=== PATIENT | male | born 1985 | race Caucasian/White ===

== ENCOUNTER 2024-09-19 19:47 | Emergency (ER) | payer OTHER ==
[2024-09-19 19:51] VITALS: PULSE 78; RESP 18
--- NOTE | 2024-09-19 19:57 | ED ---
Lower Extremity Injury HPI - General Source: patient, RN notes reviewed Mode of arrival: ambulatory Limitations: no limitations <Etta Damon - Last Filed: 09/19/24 19:56> <Geovanni Campbell - Last Filed: 09/19/24 20:26> - General Chief Complaint: Extremity Injury, Lower Stated Complaint: R Knee Injury Time Seen by Provider: 09/19/24 19:56 - History of Present Illness Initial Comments: Quick [id number] male sent from [place] for right knee pain. States he was playing volleyball when he noticed the pain however is unsure of a specific injury/trauma. (Etta Damon) 38-year-old male with right knee pain while playing volleyball. Patient states he jumped up and when he came down on his right knee had immediate pain. He has noted swelling since the injury which occurred just prior to arrival. Patient states he had a remote injury in this knee when he was in high school. Patient felt a pop. No other injury reported. (Geovanni Campbell) - Related Data Allergies Allergy/AdvReac Type Severity Reaction Status Date / Time ibuprofen Allergy Nausea Verified 09/19/24 19:51 Review of Systems ROS Other: All systems not noted in ROS Statement are negative. <Etta Damon - Last Filed: 09/19/24 19:56> ROS Other: All systems not noted in ROS Statement are negative. <Geovanni Campbell - Last Filed: 09/19/24 20:26> ROS Statement: Those systems with pertinent positive or pertinent negative responses have been documented in the HPI. Past Medical History Past Medical History: No Reported History History of Any Multi-Drug Resistant Organisms: None Reported Past Surgical History: No Surgical Hx Reported Past Psychological History: No Psychological Hx Reported Smoking Status: Current every day smoker Past Drug Use History: Cocaine, Heroin <Etta Damon - Last Filed: 09/19/24 19:56> General Exam Limitations: no limitations <Etta Damon - Last Filed: 09/19/24 19:56> General appearance: alert, in no apparent distress Head exam: Present: atraumatic, normocephalic Eye exam: Present: normal appearance, PERRL Neck exam: Present: normal inspection. Absent: tenderness, meningismus Respiratory exam: Present: normal lung sounds bilaterally. Absent: respiratory distress, wheezes Cardiovascular Exam: Present: regular rate, normal rhythm GI/Abdominal exam: Present: soft. Absent: distended, tenderness, guarding Extremities exam: Present: joint swelling (Right knee swelling), other (Distal pulses intact). Absent: full ROM (Decreased range of motion secondary to pain.) Neurological exam: Present: alert, oriented X3 Psychiatric exam: Present: normal affect, normal mood Skin exam: Present: warm, dry, intact <Geovanni Campbell - Last Filed: 09/19/24 20:26> - General Exam Comments Initial Comments: Visual Physical Exam Vital signs reviewed General: Well-appearing, nontoxic, no acute distress. Head: Normocephalic, atraumatic Eyes: PERRLA, EOMI ENT: Airway patent Chest: Nonlabored breathing Skin: No visual rash, normal skin tone Neuro: Alert and oriented 3 Musculoskeletal: No gross abnormalities (Etta Damon) Course Vital Signs 09/19/24 19:49 Temperature 98 F Pulse Rate 78 Respiratory 18 Rate Blood Pressure 133/80 O2 Sat by Pulse 97 Oximetry Medical Decision Making <Etta Damon - Last Filed: 09/19/24 19:56> <Geovanni Campbell - Last Filed: 09/19/24 20:26> - Medical Decision Making I completed the quick note portion of this chart signed Etta Damon PA-C (Etta Damon) Was pt. sent in by a medical professional or institution ([facility], [facility], urgent care, hospital, or fdc...) When possible be specific @ -No Did you speak to anyone other than the patient for history (EMS, parent, family, police, friend...)? What history was obtained from this source @ -No Did you review nursing and triage notes (agree or disagree)? Why? @ -I reviewed and agree with nursing and triage notes Were old charts reviewed (outside hosp., previous admission, EMS record, old EKG, old radiological studies, urgent care reports/EKG's, fdc records)? Report findings @ -No old charts were reviewed Differential Musculoskeletal Muscular strain, contusion, ligament sprain, fracture, arthritis, septic arthritis, bursitis, cellulitis, muscle spasm, nerve compression, DVT, arterial occlusion, herpes zoster, electrolyte abnormality, tumor.... This is not meant to be in all inclusive list EKG interpreted by me (3pts min.). @ -As above X-rays interpreted by me (1pt min.). @ -X-ray of the right knee is negative for displaced fracture, no dislocation. CT interpreted by me (1pt min.). @ -None done U/S interpreted by me (1pt. min.). @ -None done What testing was considered but not performed or refused? (CT, X-rays, U/S, labs)? Why? @ -None What meds were considered but not given or refused? Why? @ -None Did you discuss the management of the patient with other professionals (professionals i.e. Dr., PA, [employer], lab, RT, psych nurse, sexual assault social worker, instrument maker and repairer, teacher, financial aids officer, skilled nursing case manager)? Give summary @ -No Was smoking cessation discussed for >3mins.? @ -No Was critical care preformed (if so, how long)? @ -No Were there social determinants of health that impacted care today? How? (Homelessness, low income, unemployed, alcoholism, drug addiction, transportation, low edu. Level, literacy, decrease access to med. care, correction, rehab)? @ -No Was there de-escalation of care discussed even if they declined (Discuss DNR or withdrawal of care, Hospice)? DNR status @ -No What co-morbidities impacted this encounter? (DM, HTN, Smoking, COPD, CAD, Cancer, CVA, ARF, Chemo, Hep., AIDS, mental health diagnosis, sleep apnea, morbid obesity)? @ -None Was patient admitted / discharged? Hospital course, mention meds given and route, prescriptions, significant lab abnormalities, going to OR and other pertinent info. @ 38-year-old male with acute right knee pain while playing volleyball. Patient did have a popping sensation. X-rays are obtained which are negative for displaced fracture, no dislocation. Given the soft tissue swelling and effusion on exam as well as the popping sensation. The patient is placed in a knee immobilizer. He is instructed to follow-up with orthopedics. Undiagnosed new problem with uncertain prognosis? @ -No Drug Therapy requiring intensive monitoring for toxicity (Heparin, Nitro, Insulin, Cardizem)? @ -No Were any procedures done? @ -No Diagnosis/symptom? @Right knee effusion, right knee sprain Acute, or Chronic, or Acute on Chronic? @ -[Acute Uncomplicated (without systemic symptoms) or Complicated (systemic symptoms)? @ -Default Side effects of treatment? @ -No Exacerbation, Progression, or Severe Exacerbation? @ -No Poses a threat to life or bodily function? How? (Chest pain, [place], [place], pneumonia, PE, COPD, DKA, ARF, appy, cholecystitis, CVA, Diverticulitis, Homicidal, Suicidal, threat to staff... and all critical care pts) @ -No (Geovanni Campbell) Disposition <Etta Damon - Last Filed: 09/19/24 19:56> Is patient prescribed a controlled substance at d/c from ED?: No Time of Disposition: 20:25 <Geovanni Campbell - Last Filed: 09/19/24 20:26> Clinical Impression: Knee sprain, Knee effusion, right Disposition: HOME SELF-CARE Condition: Fair Instructions (If sedation given, give patient instructions): Knee Sprain (ED) Referrals: Nonstaff,Physician [Primary Care Provider] - 1-2 days Yao Lau MD [STAFF PHYSICIAN] - 1-2 days
--- NOTE | 2024-09-19 20:43 | XR ---
EXAMINATION TYPE: XR knee complete RT DATE OF EXAM: 09/19/2024 8:22 PM INDICATION: Patient age:Male; 38 years old; Reason for study: Right knee injury; PHH. pain COMPARISON: None. TECHNIQUE: The Right knee(s) was examined in Frontal, lateral and oblique projections. FINDINGS: No evidence of any acute osseous pathology or soft tissue swelling. Small suprapatellar j oint effusion. Small suprapatellar spur. IMPRESSION: 1. No acute osseous pathology. 2. Small suprapatellar joint effusion. [facility], , 09/19/2024 8:41 PM
[2024-09-19 21:27] VITALS: BP 131/79; TEMP 97.7
== END 2024-09-19 21:55 | disposition home or self-care (01) ==
LOC: EC 19:47
DX: S83.91XA Sprain of unspecified site of right knee, initial encounter (principal); F17.200 Nicotine dependence, unspecified, uncomplicated; Z88.6 Allergy status to analgesic agent; X50.9XXA Other and unspecified overexertion or strenuous movements or postures, initial encounter; Y93.68 Activity, volleyball (beach) (court)
CPT/HCPCS: 73562; 99283; L1830